=== PATIENT | female | born 1960 | race Caucasian/White ===

== ENCOUNTER 2018-04-30 08:20 | Emergency (ER) | payer MEDICAID ==
[~2018-04-30] VITALS: Ht 165.1 cm; Wt 71.8 kg
[2018-04-30 08:26] VITALS: BP 115/75
== END 2018-04-30 10:22 | disposition home or self-care (01) ==
LOC: ED 09:55
DX: G89.29 Other chronic pain (principal); M25.531 Pain in right wrist; M19.031 Primary osteoarthritis, right wrist; M06.9 Rheumatoid arthritis, unspecified
CPT/HCPCS: 29260; 99283

== ENCOUNTER 2019-03-26 23:36 | Emergency (ER) | payer MEDICAID ==
[~2019-03-26] VITALS: Ht 165.1 cm; Wt 74.0 kg
--- NOTE | 2019-03-26 23:45 | NUR ---
ERP AT BEDSIDE TO SHERLYNAL
[2019-03-27] MEDS ORDERED: DIPHENHYDRAMINE 25 MG CAPSULE PO ONE
[2019-03-27] MEDS ORDERED: DIPHENHYDRAMINE 25 MG CAPSULE ONE (00:05)
--- NOTE | 2019-03-27 00:19 | NUR ---
PT MEDICATED PER MAR FOR REDNESS AND ITCHING TO FACE AND L ARM. NO ACUTE RESP DISTRESS NOTED. PULSE OX IN PLACE. VSS. CALL LIGHT IN REACH.
[2019-03-27 00:50] VITALS: BP 124/76
== END 2019-03-27 00:58 | disposition home or self-care (01) ==
LOC: ED 03-27 00:50
DX: T78.49XA Other allergy, initial encounter (principal); R21 Rash and other nonspecific skin eruption; M06.9 Rheumatoid arthritis, unspecified; Z87.891 Personal history of nicotine dependence; X58.XXXA Exposure to other specified factors, initial encounter
CPT/HCPCS: 99283; Q0163